=== PATIENT | female | born 1980 | race Caucasian/White ===

== ENCOUNTER 2016-11-03 07:33 | Emergency (ER) | payer OTHER ==
[~2016-11-03] VITALS: Ht 157.5 cm; Wt 90.3 kg
[2016-11-03 08:17] LABS: BASOPHIL % 1.4 % (0-2); PLATELET COUNT 275 x10^3mcL (130-400); RED CELL DISTRIBUTION WIDTH 13.1 % (11.5-14.5)
[2016-11-03 08:28] LABS: CALCIUM 8.2 mg/dL (8.5-10.1); CARBON DIOXIDE 29.6 mmol/L (21-32); CHLORIDE SERUM 105 mmol/L (98-107); CREATININE SERUM 0.6 mg/dL (0.6-1.0); GFR1 > 60 mL/min; GLUCOSE SERUM 102 mg/dL (74-106); POTASSIUM SERUM 3.7 mmol/L (3.5-5.1); SODIUM SERUM 140 mmol/L (136-145)
[2016-11-03 08:30] LABS: ALKALINE PHOSPHATASE 74 U/L (46-116); ALT/SGPT 17 U/L (14-59); AST/SGOT 13 U/L (15-37); BILIRUBIN TOTAL 0.6 mg/dL (0.20-1.00); LIPASE 208 IU/L (73-393); TOTAL PROTEIN, SERUM 6.6 g/dL (6.4-8.2); URIC ACID 4.7 mg/dL (2.6-6.0)
[2016-11-03 08:36] LABS: ALBUMIN 3.3 g/dL (3.4-5.0)
[2016-11-03 09:46] VITALS: BP 109/78
== END 2016-11-03 10:49 | disposition home or self-care (01) ==
LOC: ED 07:33
PROVIDERS: Emergency Medicine
DX: N83.201 Unspecified ovarian cyst, right side (principal)

== ENCOUNTER 2017-01-17 07:31 | Emergency (ER) | payer OTHER ==
[2017-01-17 07:38] VITALS: BP 119/79
== END 2017-01-17 08:53 | disposition home or self-care (01) ==
LOC: ED 07:31
DX: S60.411A Abrasion of left index finger, initial encounter (principal); X58.XXXA Exposure to other specified factors, initial encounter; Y93.89 Activity, other specified; Y99.8 Other external cause status; Y92.89 Other specified places as the place of occurrence of the external cause

== ENCOUNTER 2017-06-09 22:06 | Emergency (ER) | payer OTHER ==
[~2017-06-09] VITALS: Ht 157.5 cm; Wt 91.2 kg
[2017-06-09 23:47] VITALS: BP 117/77
== END 2017-06-09 23:40 | disposition home or self-care (01) ==
LOC: ED 22:06
DX: J40 Bronchitis, not specified as acute or chronic (principal); R09.1 Pleurisy
CPT/HCPCS: Q0092

== ENCOUNTER 2017-07-23 16:08 | Emergency (ER) | payer OTHER ==
[~2017-07-23] VITALS: Ht 157.5 cm; Wt 87.5 kg
[2017-07-23 16:15] VITALS: Ht 157.5 cm; Wt 87.5 kg
[2017-07-23 19:06] LABS: BASOPHIL % 0.6 % (0-2); PLATELET COUNT 305 x10^3mcL (130-400); RED CELL DISTRIBUTION WIDTH 13.2 % (11.5-14.5)
[2017-07-23 19:11] LABS: CALCIUM 8.6 mg/dL (8.5-10.1); CARBON DIOXIDE 28.2 mmol/L (21-32); CHLORIDE SERUM 106 mmol/L (98-107); CREATININE SERUM 0.7 mg/dL (0.6-1.0); GFR1 > 60 mL/min; GLUCOSE SERUM 105 mg/dL (74-106); POTASSIUM SERUM 4.2 mmol/L (3.5-5.1); SODIUM SERUM 141 mmol/L (136-145)
[2017-07-23 19:16] LABS: ALBUMIN 3.3 g/dL (3.4-5.0); ALKALINE PHOSPHATASE 61 U/L (46-116); ALT/SGPT 19 U/L (14-59); AST/SGOT 14 U/L (15-37); BILIRUBIN TOTAL 0.25 mg/dL (0.20-1.00); LIPASE 226 IU/L (73-393); TOTAL PROTEIN, SERUM 6.9 g/dL (6.4-8.2)
[2017-07-23 20:13] VITALS: BP 116/74
== END 2017-07-23 20:13 | disposition home or self-care (01) ==
LOC: ED 16:08
PROVIDERS: Emergency Medicine
DX: K52.9 Noninfective gastroenteritis and colitis, unspecified (principal)
CPT/HCPCS: J2405; J7030

== ENCOUNTER 2017-08-20 13:49 | Inpatient (IN) | payer OTHER ==
[~2017-08-20] VITALS: Ht 157.5 cm; Wt 89.9 kg
[2017-08-20 13:56] VITALS: Ht 157.5 cm; Wt 89.9 kg
[2017-08-20 15:34] LABS: CALCIUM 8.8 mg/dL (8.5-10.1); CARBON DIOXIDE 27.3 mmol/L (21-32); CHLORIDE SERUM 104 mmol/L (98-107); CREATININE SERUM 0.7 mg/dL (0.6-1.0); GFR1 > 60 mL/min; GLUCOSE SERUM 117 mg/dL (74-106); POTASSIUM SERUM 4.2 mmol/L (3.5-5.1); SODIUM SERUM 138 mmol/L (136-145)
[2017-08-20 15:37] LABS: BASOPHIL % 0.5 % (0-2); PLATELET COUNT 332 x10^3mcL (130-400); RED CELL DISTRIBUTION WIDTH 12.9 % (11.5-14.5)
[2017-08-20 15:38] LABS: ALBUMIN 3.8 g/dL (3.4-5.0); ALKALINE PHOSPHATASE 71 U/L (46-116); ALT/SGPT 21 U/L (14-59); AST/SGOT 17 U/L (15-37); BILIRUBIN TOTAL 0.37 mg/dL (0.20-1.00); TOTAL PROTEIN, SERUM 7.7 g/dL (6.4-8.2)
[2017-08-20 15:49] LABS: UA SPECIFIC GRAVITY >=1.030 (1.005-1.035); microscopic required? YES; urine erythrocyte 1+ (NEGATIVE)
[2017-08-20 17:33] VITALS: BP 142/81
[2017-08-20 17:49] VITALS: BP 142/81
[2017-08-20 21:27] VITALS: BP 108/64
[2017-08-20 22:56] LABS: T3 TOTAL 1.02 ng/mL
[2017-08-20 23:00] LABS: CHOLESTEROL/HDL RATIO 3.5; MAGNESIUM 2.3 mg/dL (1.8-2.4); PHOSPHOROUS 3.7 mg/dL (2.5-4.9)
[2017-08-21 00:56] LABS: FREE T4 1.2 ng/dL (0.76-1.46); FREE THYROXINE INDEX 3.7 ug/dL (1.4-4.5); T4(THYROXINE) 10.9 ug/dL (4.7-13.3)
[2017-08-21 05:58] VITALS: BP 113/62
[2017-08-21 06:58] LABS: PLATELET COUNT 295 x10^3mcL (130-400); RED CELL DISTRIBUTION WIDTH 12.9 % (11.5-14.5)
[2017-08-21 07:06] LABS: CALCIUM 7.9 mg/dL (8.5-10.1); CARBON DIOXIDE 25.3 mmol/L (21-32); CHLORIDE SERUM 107 mmol/L (98-107); CREATININE SERUM 0.7 mg/dL (0.6-1.0); GFR1 > 60 mL/min; GLUCOSE SERUM 138 mg/dL (74-106); POTASSIUM SERUM 4.3 mmol/L (3.5-5.1); SODIUM SERUM 140 mmol/L (136-145)
[2017-08-21 07:13] LABS: BASOPHIL % 0 % (0-2)
[2017-08-21 10:15] VITALS: BP 98/65
[2017-08-21 13:15] VITALS: BP 99/62
[2017-08-21 18:24] VITALS: BP 125/73
[2017-08-21 20:05] VITALS: BP 116/72
[2017-08-22 05:36] VITALS: BP 109/71
[2017-08-22 07:48] LABS: BASOPHIL % 0.3 % (0-2); PLATELET COUNT 296 x10^3mcL (130-400); RED CELL DISTRIBUTION WIDTH 12.9 % (11.5-14.5)
[2017-08-22 08:02] LABS: CALCIUM 8.2 mg/dL (8.5-10.1); CARBON DIOXIDE 22.8 mmol/L (21-32); CHLORIDE SERUM 110 mmol/L (98-107); CREATININE SERUM 0.7 mg/dL (0.6-1.0); GFR1 > 60 mL/min; GLUCOSE SERUM 100 mg/dL (74-106); POTASSIUM SERUM 3.7 mmol/L (3.5-5.1); SODIUM SERUM 144 mmol/L (136-145)
[2017-08-22 10:21] VITALS: BP 106/74
[2017-08-22 10:30] VITALS: BP 106/74
[2017-08-22] MEDS ORDERED: METP PO (13:01)
[2017-08-22] MEDS ORDERED: AMITIZA24 MC1 PO (13:03)
[2017-08-22] MEDS ORDERED: COLACE100 MG PO (13:16)
[2017-08-22] MEDS ORDERED: PAIN RELIEVER650 MG PO (13:23)
== END 2017-08-22 14:23 | disposition home or self-care (01) | DRG 392 ==
LOC: ED 13:49 → DU 16:46
PROVIDERS: Emergency Medicine; Family Medicine; Internal Medicine Gastroenterology; Student in an Organized Health Care Education/Training Program
PROC: 0DBQ8ZX Excision of Anus, Via Natural or Artificial Opening Endoscopic, Diagnostic (ICD-10-PCS; principal; 2017-08-22 08:00)
DX: K59.00 Constipation, unspecified (principal); K52.9 Noninfective gastroenteritis and colitis, unspecified; E66.01 Morbid (severe) obesity due to excess calories; E78.1 Pure hyperglyceridemia; R31.9 Hematuria, unspecified; K64.8 Other hemorrhoids; D72.829 Elevated white blood cell count, unspecified; I10 Essential (primary) hypertension; I16.0 Hypertensive urgency; E83.51 Hypocalcemia; E87.8 Other disorders of electrolyte and fluid balance, not elsewhere classified; Z79.899 Other long term (current) drug therapy; Z68.36 Body mass index [BMI] 36.0-36.9, adult
CPT/HCPCS: 45378; 83880; 84439; 87046; 87046-59; C9113; J1200; J1610; J1885; J1956; J2250; J2310; J2405; J3010; J3490; J7030; J7512

== ENCOUNTER 2017-09-04 20:49 | Emergency (ER) | payer OTHER ==
[~2017-09-04] VITALS: Ht 157.5 cm; Wt 88.9 kg
[~2017-09-04 20:49] MED LIST: AMITIZA24 MC1 PO; COLACE100 MG PO; METP PO; PAIN RELIEVER650 MG PO
[2017-09-04 21:31] VITALS: Ht 157.5 cm; Wt 88.9 kg
[2017-09-04 23:48] LABS: UA SPECIFIC GRAVITY 1.015 (1.005-1.035); microscopic required? YES; urine erythrocyte 2+ (NEGATIVE)
[2017-09-05 01:16] VITALS: BP 100/61
== END 2017-09-05 01:35 | disposition home or self-care (01) ==
LOC: ED 20:49
PROVIDERS: Emergency Medicine
DX: K52.9 Noninfective gastroenteritis and colitis, unspecified (principal); K92.1 Melena
CPT/HCPCS: J1885; Q0162

== ENCOUNTER 2017-10-19 22:13 | Emergency (ER) | payer OTHER ==
[~2017-10-19] VITALS: Ht 157.5 cm; Wt 87.5 kg
[2017-10-19 22:19] VITALS: BP 135/90; Ht 157.5 cm; Wt 87.5 kg
== END 2017-10-19 22:38 | disposition home or self-care (01) ==
LOC: ED 22:13
DX: H10.023 Other mucopurulent conjunctivitis, bilateral (principal); H10.89 Other conjunctivitis

== ENCOUNTER → 2018-06-07 | Outpatient (CLI) | payer OTHER ==
[2018-06-07 08:23] LABS: BASOPHIL % 0.2 % (0-2); PLATELET COUNT 305 x10^3mcL (130-400); RED CELL DISTRIBUTION WIDTH 13.4 % (11.5-14.5)
[2018-06-07 08:40] LABS: UA SPECIFIC GRAVITY >=1.030 (1.005-1.035); microscopic required? YES; urine erythrocyte 1+ (NEGATIVE)
[2018-06-07 08:43] LABS: ALBUMIN 3.5 g/dL (3.4-5.0); ALKALINE PHOSPHATASE 57 U/L (46-116); ALT/SGPT 21 U/L (14-59); AST/SGOT 11 U/L (15-37); CALCIUM 8.4 mg/dL (8.5-10.1); CARBON DIOXIDE 27.6 mmol/L (21-32); CHLORIDE SERUM 107 mmol/L (98-107); CREATININE SERUM 0.6 mg/dL (0.6-1.0); FREE T4 1.06 ng/dL (0.76-1.46); GFR1 > 60 mL/min; GLUCOSE SERUM 99 mg/dL (74-106); HDL CHOLESTEROL 45 mg/dL (40-60); POTASSIUM SERUM 4.3 mmol/L (3.5-5.1); SODIUM SERUM 143 mmol/L (136-145); TOTAL PROTEIN, SERUM 7.6 g/dL (6.4-8.2); TRIGLYCERIDES 130 mg/dL (<150)
[2018-06-07 08:45] LABS: CHOLESTEROL 123 mg/dL (<200); CHOLESTEROL/HDL RATIO 2.7
[2018-06-07 08:46] LABS: T3 TOTAL 1.55 ng/mL
[2018-06-07 08:53] LABS: FREE T4 1.08 ng/dL (0.76-1.46); FREE THYROXINE INDEX 3.2 ug/dL (1.4-4.5); T4(THYROXINE) 11.3 ug/dL (4.7-13.3)
[2018-06-08 04:15] LABS: VITAMIN D 25-HYDROXY 29.5 ng/mL (30.0-100.0)
== END | disposition home or self-care (01) ==
LOC: LB 07:38
DX: Z00.00 Encounter for general adult medical examination without abnormal findings (principal)
CPT/HCPCS: 84439

== ENCOUNTER 2018-08-14 15:17 | Emergency (ER) | payer OTHER ==
[~2018-08-14] VITALS: Ht 157.5 cm; Wt 92.1 kg
[2018-08-14 15:53] VITALS: Ht 157.5 cm; Wt 92.1 kg
[2018-08-14 18:42] LABS: PLATELET COUNT 330 x10^3mcL (130-400); RED CELL DISTRIBUTION WIDTH 14.1 % (11.5-14.5)
[2018-08-14 22:14] VITALS: BP 119/75
== END 2018-08-14 21:00 | disposition home or self-care (01) ==
LOC: ED 15:17
PROVIDERS: Emergency Medicine
DX: N93.9 Abnormal uterine and vaginal bleeding, unspecified (principal); D25.9 Leiomyoma of uterus, unspecified; N83.209 Unspecified ovarian cyst, unspecified side
CPT/HCPCS: 36415; Q0092

== ENCOUNTER 2019-01-10 18:24 | Emergency (ER) | payer OTHER ==
[~2019-01-10] VITALS: Ht 157.5 cm; Wt 93.4 kg
[2019-01-10 18:34] VITALS: Ht 157.5 cm; Wt 93.4 kg
[2019-01-10 19:21] LABS: BASOPHIL % 0.6 % (0-2); PLATELET COUNT 340 x10^3mcL (130-400); RED CELL DISTRIBUTION WIDTH 14.1 % (11.5-14.5)
[2019-01-10 19:29] LABS: CALCIUM 8.7 mg/dL (8.5-10.1); CARBON DIOXIDE 26.5 mmol/L (21-32); CHLORIDE SERUM 108 mmol/L (98-107); CREATININE SERUM 0.7 mg/dL (0.6-1.0); GFR1 > 60 mL/min; GLUCOSE SERUM 102 mg/dL (74-106); SODIUM SERUM 143 mmol/L (136-145)
[2019-01-10 19:49] LABS: ALBUMIN 3.2 g/dL (3.4-5.0); ALKALINE PHOSPHATASE 73 U/L (46-116); ALT/SGPT 21 U/L (14-59); AST/SGOT 13 U/L (15-37); BILIRUBIN TOTAL 0.2 mg/dL (0.20-1.00); LIPASE 211 IU/L (73-393); TOTAL PROTEIN, SERUM 6.8 g/dL (6.4-8.2)
[2019-01-10 21:43] VITALS: BP 104/61
== END 2019-01-10 21:43 | disposition home or self-care (01) ==
LOC: ED 18:24
PROVIDERS: Emergency Medicine
DX: D25.9 Leiomyoma of uterus, unspecified (principal)
CPT/HCPCS: J2270; J2405; J7030

== ENCOUNTER 2019-01-25 19:52 | Emergency (ER) | payer OTHER ==
[~2019-01-25] VITALS: Ht 157.5 cm; Wt 93.0 kg
[2019-01-25 19:57] VITALS: BP 137/84; Ht 157.5 cm; Wt 93.0 kg
== END 2019-01-25 20:55 | disposition left against medical advice (07) ==
LOC: ED 19:52
DX: Z53.21 Procedure and treatment not carried out due to patient leaving prior to being seen by health care provider (principal)

== ENCOUNTER → 2019-02-15 | Outpatient (CLI) | payer OTHER | END | disposition home or self-care (01) | LOC: US 08:45 | PROC: BW4GZZZ Ultrasonography of Pelvic Region (ICD-10-PCS; principal; 2019-02-15) | DX: N83.201 Unspecified ovarian cyst, right side (principal) ==

== ENCOUNTER → 2019-08-31 | Outpatient (CLI) | payer OTHER | END | disposition home or self-care (01) | LOC: US 08:21 | PROC: BW4GZZZ Ultrasonography of Pelvic Region (ICD-10-PCS; principal; 2019-08-31) | DX: N83.209 Unspecified ovarian cyst, unspecified side (principal) ==

== ENCOUNTER → 2019-09-12 | Outpatient (CLI) | payer OTHER | END | disposition home or self-care (01) | LOC: US 08:12 | PROC: BU46ZZZ Ultrasonography of Uterus (ICD-10-PCS; principal; 2019-09-12) | DX: Z09 Encounter for follow-up examination after completed treatment for conditions other than malignant neoplasm (principal) ==

== ENCOUNTER 2020-01-10 07:30 | Emergency (ER) | payer OTHER ==
[~2020-01-10] VITALS: Ht 162.6 cm; Wt 92.1 kg
[2020-01-10 07:42] VITALS: Ht 162.6 cm; Wt 92.1 kg
[2020-01-10 09:52] VITALS: BP 137/89
== END 2020-01-10 09:52 | disposition home or self-care (01) ==
LOC: ED 07:30
DX: H10.211 Acute toxic conjunctivitis, right eye (principal); H11.31 Conjunctival hemorrhage, right eye; E66.9 Obesity, unspecified; Z68.34 Body mass index [BMI] 34.0-34.9, adult
CPT/HCPCS: 90715

== ENCOUNTER 2020-02-06 07:25 | Emergency (ER) | payer OTHER ==
[~2020-02-06] VITALS: Ht 157.5 cm; Wt 93.0 kg
[2020-02-06 07:36] VITALS: Ht 157.5 cm; Wt 93.0 kg
[2020-02-06 09:03] LABS: CALCIUM 8.5 mg/dL (8.5-10.1); CHLORIDE SERUM 102 mmol/L (98-107); CREATININE SERUM 0.7 mg/dL (0.6-1.0); GFR1 > 60 mL/min; GLUCOSE SERUM 100 mg/dL (74-106); POTASSIUM SERUM 3.9 mmol/L (3.5-5.1); SODIUM SERUM 138 mmol/L (136-145)
[2020-02-06 09:08] LABS: ALBUMIN 3.4 g/dL (3.4-5.0); ALKALINE PHOSPHATASE 70 U/L (46-116); ALT/SGPT 27 U/L (14-59); AST/SGOT 16 U/L (15-37); BILIRUBIN TOTAL 0.5 mg/dL (0.20-1.00); TOTAL PROTEIN, SERUM 7.1 g/dL (6.4-8.2)
[2020-02-06 09:09] LABS: UA SPECIFIC GRAVITY 1.025 (1.005-1.035); microscopic required? YES; urine erythrocyte 2+ (NEGATIVE)
[2020-02-06 09:09] LABS: BASOPHIL % 0.3 % (0-2); PLATELET COUNT 283 x10^3mcL (130-400); RED CELL DISTRIBUTION WIDTH 13.5 % (11.5-14.5)
[2020-02-06 11:15] VITALS: BP 126/74
== END 2020-02-06 11:22 | disposition home or self-care (01) ==
LOC: ED 07:25
PROVIDERS: Emergency Medicine
DX: N94.6 Dysmenorrhea, unspecified (principal); D25.9 Leiomyoma of uterus, unspecified; Z87.42 Personal history of other diseases of the female genital tract
CPT/HCPCS: 87491; 87591; J1885; Q0092

== ENCOUNTER → 2020-02-12 | Outpatient (CLI) | payer OTHER ==
[2020-02-12 15:28] LABS: BASOPHIL % 1.1 % (0-2); PLATELET COUNT 333 x10^3mcL (130-400); RED CELL DISTRIBUTION WIDTH 14.1 % (11.5-14.5)
[2020-02-12 16:05] LABS: ALBUMIN 3.7 g/dL (3.4-5.0); ALKALINE PHOSPHATASE 73 U/L (46-116); ALT/SGPT 29 U/L (14-59); AST/SGOT 16 U/L (15-37); BILIRUBIN TOTAL 0.4 mg/dL (0.20-1.00); CALCIUM 8.5 mg/dL (8.5-10.1); CARBON DIOXIDE 31.5 mmol/L (21-32); CHLORIDE SERUM 105 mmol/L (98-107); CREATININE SERUM 0.8 mg/dL (0.6-1.0); FREE T4 1.19 ng/dL (0.76-1.46); GFR1 > 60 mL/min; GLUCOSE SERUM 89 mg/dL (74-106); SODIUM SERUM 142 mmol/L (136-145); TOTAL PROTEIN, SERUM 7.5 g/dL (6.4-8.2)
== END | disposition home or self-care (01) ==
LOC: LB 14:50
PROVIDERS: ATTEND Obstetrics & Gynecology
DX: N95.1 Menopausal and female climacteric states (principal)
CPT/HCPCS: 82670; 84402; 84403; 84439; 86376

== ENCOUNTER → 2020-03-29 | Outpatient (CLI) | payer OTHER ==
[2020-03-29 11:57] LABS: T4(THYROXINE) 7.4 ug/dL (4.7-13.3)
== END | disposition home or self-care (01) ==
LOC: LB 11:13
PROVIDERS: ATTEND Obstetrics & Gynecology
DX: E03.9 Hypothyroidism, unspecified (principal); N92.5 Other specified irregular menstruation

== ENCOUNTER → 2020-04-13 | Outpatient (CLI) | payer OTHER | END | disposition home or self-care (01) | LOC: LB 07:31 | PROVIDERS: ATTEND Obstetrics & Gynecology | DX: N95.1 Menopausal and female climacteric states (principal) | CPT/HCPCS: 82670; 84402; 84403 ==

== ENCOUNTER 2020-04-21 18:35 | Emergency (ER) | payer OTHER, SELFPAY ==
[~2020-04-21] VITALS: Ht 157.5 cm; Wt 93.4 kg
[2020-04-21 18:37] VITALS: Ht 157.5 cm; Wt 93.4 kg
[2020-04-21 20:40] VITALS: BP 113/77
== END 2020-04-21 20:40 | disposition home or self-care (01) ==
LOC: ED 18:35
DX: R19.7 Diarrhea, unspecified (principal); R11.0 Nausea; Z20.828 Contact with and (suspected) exposure to other viral communicable diseases
CPT/HCPCS: Q0162; U0003-CS

== ENCOUNTER 2020-08-11 07:27 | Emergency (ER) | payer OTHER ==
[~2020-08-11] VITALS: Ht 157.5 cm; Wt 93.0 kg
[2020-08-11 07:39] VITALS: Ht 157.5 cm; Wt 93.0 kg
[2020-08-11] MEDS ORDERED: NAPROXEN500 MG PO (08:16)
[2020-08-11 08:31] VITALS: BP 125/90
== END 2020-08-11 08:31 | disposition home or self-care (01) ==
LOC: ED 07:27
DX: S63.91XA Sprain of unspecified part of right wrist and hand, initial encounter (principal); X58.XXXA Exposure to other specified factors, initial encounter; Y93.89 Activity, other specified; Y92.89 Other specified places as the place of occurrence of the external cause; Y99.8 Other external cause status

== ENCOUNTER 2020-08-13 13:54 | Emergency (ER) | payer OTHER ==
[~2020-08-13] VITALS: Ht 157.5 cm; Wt 92.1 kg
[~2020-08-13 13:54] MED LIST changes: +NAPROXEN500 MG PO
[2020-08-13 14:22] VITALS: BP 125/79; Ht 157.5 cm; Wt 92.1 kg
== END 2020-08-13 14:45 | disposition home or self-care (01) ==
LOC: ED 13:54
DX: E05.90 Thyrotoxicosis, unspecified without thyrotoxic crisis or storm (principal); Z02.89 Encounter for other administrative examinations